=== PATIENT | female | born 1995 | race Caucasian/White ===

== ENCOUNTER 2016-06-27 00:13 | Emergency (ER) | payer OTHER ==
[~2016-06-27] VITALS: Ht 157.5 cm; Wt 63.5 kg
[2016-06-27 00:18] VITALS: BP 130/77
--- NOTE | 2016-06-27 00:31 | NUR ---
PATIENT AMBULATED TO ER BED 6.
--- NOTE | 2016-06-27 00:35 | NUR ---
PT PRESENT TO ER WITH C/O ABDOMINAL PAIN, NAUSEA, FOR 2 WEEKS
--- NOTE | 2016-06-27 00:40 | NUR ---
PATIENT BEING EVALUATE BY DR. SIU.
[2016-06-27] MEDS ORDERED: ALUMINUM HYD/MAG/SIMETHICONE 30 ML UDC PO ONE (00:55)
[2016-06-27] MEDS ORDERED: LIDOCAINE VISCOUS 2% 20 ML UDC PO ONE (00:55)
[2016-06-27] MEDS ORDERED: DICYCLOMINE HCL LIQUID 10 MG/5 ML UDC PO ONE (00:55)
--- NOTE | 2016-06-27 02:30 | NUR ---
Patient discharged with v/s stable. Written and verbal after care instructions given and explained. Patient alert, oriented and verbalized understanding of instructions. Ambulatory with steady gait. All questions addressed prior to discharge. ID band removed. Patient advised to follow up with PMD. Rx of PROTONIX 40MG DELAYED RELEASE PO given. Patient educated on indication of medication including possible reaction and side effects. Opportunity to ask questions provided and answered.
[2016-06-27 02:32] VITALS: BP 122/68
== END 2016-06-27 02:30 | disposition home or self-care (01) ==
LOC: MED 00:13
DX: K29.00 Acute gastritis without bleeding (principal)
CPT/HCPCS: 81002; 81025; 99283

== ENCOUNTER 2016-08-08 23:11 | Emergency (ER) | payer OTHER ==
[~2016-08-08] VITALS: Ht 157.5 cm; Wt 63.6 kg
[2016-08-08 23:22] VITALS: BP 128/90
--- NOTE | 2016-08-09 00:50 | NUR ---
PT TAKEN TO OF2
--- NOTE | 2016-08-09 00:55 | NUR ---
21Y F BIB [facility] C/O LEFT 4TH TOE PAIN, AND SWELLING, THE COUCH FALL ON HER FOOT YESTERDAY
--- NOTE | 2016-08-09 01:01 | NUR ---
Dr. Byrd evaluating patient
[2016-08-09 01:29] VITALS: BP 122/87
== END 2016-08-09 01:29 | disposition home or self-care (01) ==
LOC: MED 23:11
DX: S90.32XA Contusion of left foot, initial encounter (principal); J45.909 Unspecified asthma, uncomplicated; W20.8XXA Other cause of strike by thrown, projected or falling object, initial encounter; Y93.89 Activity, other specified; Y92.89 Other specified places as the place of occurrence of the external cause; Y99.8 Other external cause status
CPT/HCPCS: 29515; 73630; 99284

== ENCOUNTER 2017-02-05 23:12 | Emergency (ER) | payer OTHER ==
[~2017-02-05] VITALS: Ht 157.5 cm; Wt 69.6 kg
[2017-02-05 23:14] VITALS: BP 132/90
--- NOTE | 2017-02-05 23:22 | NUR ---
TO LOBBY, AMB, VS STABLE,A/W FOR BED, ELIZABETH NOTED
--- NOTE | 2017-02-06 01:00 | NUR ---
TO SEE OB, [employer] IN MORNING. PATIENT LEFT WITHOUT BEING SEEN BY DR. PRIDE. NO FURTHER CARE PROVIDED FOR PATIENT.
== END 2017-02-06 01:00 | disposition left against medical advice (07) ==
LOC: MED 23:12
DX: N93.9 Abnormal uterine and vaginal bleeding, unspecified (principal); Z53.21 Procedure and treatment not carried out due to patient leaving prior to being seen by health care provider

== ENCOUNTER 2017-08-22 01:50 | Emergency (ER) | payer OTHER ==
[~2017-08-22] VITALS: Ht 157.5 cm; Wt 69.4 kg
[2017-08-22 01:54] VITALS: BP 135/102
[2017-08-22 02:40] VITALS: BP 125/78
== END 2017-08-22 02:40 | disposition home or self-care (01) ==
LOC: MED 01:50
DX: R10.30 Lower abdominal pain, unspecified (principal); R11.2 Nausea with vomiting, unspecified; J45.909 Unspecified asthma, uncomplicated
CPT/HCPCS: 99283

== ENCOUNTER 2018-08-12 09:32 | Emergency (ER) | payer OTHER ==
[~2018-08-12] VITALS: Ht 157.5 cm; Wt 68.5 kg
[2018-08-12 09:39] VITALS: BP 125/80
--- NOTE | 2018-08-12 10:01 | NUR ---
C/O ABDOMINAL PAIN RADIATING TO BACK, STATED CONSTIPATION X3 DAYS, + N/V, + HEARTBURN, ALSO STATED NO MENSTRATION X5 MONTH .SKIN IS PINK/WARM/DRY; AAOX4 WITH EVEN AND STEADY GAIT; LUNGS CLEAR BL; HR EVEN AND REGULAR; PT DENIES ANY FEVER, CP, SOB, OR COUGH AT THIS TIME; PATIENT STATES PAIN OF 6/10 AT THIS TIME; VSS; PATIENT POSITIONED FOR COMFORT; HOB ELEVATED; BEDRAILS UP X2; BED DOWN. ER MD MADE AWARE OF PT STATUS.
--- NOTE | 2018-08-12 10:27 | NUR ---
Dr. James evaluating patient at bedside.
[2018-08-12] MEDS ORDERED: ACETAMINOPHEN EXTRA STRENGTH 500 MG TAB PO ONE (10:35)
[2018-08-12] MEDS ORDERED: ONDANSETRON 4 MG ODT PO ONE (10:35)
[2018-08-12] MEDS ORDERED: ALUMINUM HYD/MAG/SIMETHICONE 30 ML UDC PO ONE (10:35)
--- NOTE | 2018-08-12 10:47 | NUR ---
pt to radiology via
--- NOTE | 2018-08-12 10:54 | NUR ---
Patient returned from XRAY. RN re-evaluating patient at bedside.
[2018-08-12] MEDS ORDERED: IBUPROFEN 800 MG TAB PO ONE (11:55)
[2018-08-12 12:34] VITALS: BP 129/67
--- NOTE | 2018-08-12 12:34 | NUR ---
Patient discharged with v/s stable. Written and verbal after care instructions given and explained. Patient alert, oriented and verbalized understanding of instructions. Ambulatory with steady gait. All questions addressed prior to discharge. ID band removed. Patient advised to follow up with PMD. Rx of miraLax/ibuprofen given. Patient educated on indication of medication including possible reaction and side effects. Opportunity to ask questions provided and answered.
== END 2018-08-12 12:34 | disposition home or self-care (01) ==
LOC: MED 09:32
DX: K59.00 Constipation, unspecified (principal); F17.210 Nicotine dependence, cigarettes, uncomplicated; J45.909 Unspecified asthma, uncomplicated
CPT/HCPCS: 74018; 81002; 81025; 99284; Q0162; 99283

== ENCOUNTER 2018-08-24 22:00 | Emergency (ER) | payer OTHER ==
[~2018-08-24] VITALS: Ht 157.5 cm; Wt 68.5 kg
[2018-08-24 22:02] VITALS: BP 139/90
--- NOTE | 2018-08-24 22:05 | NUR ---
TO LOBBY A/W BED AMBULATORY
[2018-08-24] MEDS ORDERED: MORPHINE SULFATE 4 MG/ML SYR IVP ONE (22:35)
--- NOTE | 2018-08-24 22:35 | NUR ---
ASSUMED CARE OF PT AT THIS TIME. C/O SALGADO X 1 DAY. AAOX4 WITH EVEN AND STEADY GAIT; PATIENT STATES PAIN OF 8/10; VSS; PATIENT POSITIONED FOR COMFORT; HOB ELEVATED; BEDRAILS UP X2; BED DOWN. ER MD MADE AWARE OF PT STATUS. WILL CONTINUE TO MONITOR.
[2018-08-24 23:50] VITALS: BP 128/81
== END 2018-08-24 23:50 | disposition home or self-care (01) ==
LOC: MED 22:00
DX: R51 Headache (principal); J45.909 Unspecified asthma, uncomplicated
CPT/HCPCS: 96374; 99283; J2270